=== PATIENT | female | born 2005 | race Two or more races ===

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

== ENCOUNTER 2023-05-02 21:34 | Emergency (ER) | payer BC, SELFPAY ==
[2023-05-02 22:21] VITALS: BP 136/76; PULSE 114; RESP 18; TEMP 36.4; O2SAT 100; BMI 20.8
[2023-05-02 22:50] LABS: Strep A DNA Probe* NOT DETECTED (Not Detectd)
[2023-05-02 23:01] LABS: PCR FLU A Negative PCR FLU A (Negative); PCR FLU B Negative PCR FLU B (Negative); PCR RSV Negative PCR RSV (Negative)
[2023-05-02 23:37] LABS: SARS PCR* Negative SARS-CoV-2 (Negative)
--- NOTE | 2023-05-03 | ED_ITS ---
HPI - General Adult General Chief complaint: Sore Throat Stated complaint: Strep Throat Time Seen by Provider: 05/02/23 23:23 History of Present Illness HPI narrative: Patient is a 17-year-old woman who comes in with right-sided ear pain and pharyngitis. She has been sick for last 2-3 days. She has low-grade fevers general malaise body aches but has been eating and drinking normally. She has no cough no sputum production no nausea or vomiting. Rapid strep is negative. She has had no sick contacts. Related Data Home Medications Medication Instructions Recorded Confirmed Pepcid 05/15/22 Previous Rx's Medication Instructions Recorded metronidazole 500 mg tablet 500 mg PO BID 7 days #14 tabs 09/29/22 Allergies Allergy/AdvReac Type Severity Reaction Status Date / Time medrol pack Allergy Intermediate Uncoded 05/02/23 22:21 Review of Systems Status of ROS: Reports: 10 or more systems reviewed and unremarkable except as noted in History and below [facility] Medical History No significant past medical history Surgical History No significant past surgical history Social History Smoking Status: Never smoker Do you use any of these nicotine containing products: None Second hand tobacco smoke exposure: No How often do you have a drink containing alcohol: never How often do you have six or more drinks on one occasion: Never AUDIT-C Alcohol total score: 0 Non-prescribed substance use: denies use service: No Exam Narrative: Exam Narrative: EXAM GENERAL: Patient appears comfortable and well. EYES: No scleral icterus. ENT: Right tympanic membrane shows dullness and erythema left tympanic membrane is normal. Pharynx is normal. THYROID: no thyroid nodules or thyromegaly. LYMPH: No supraclavicular or cervical lymphadenopathy. SKIN: Visible skin seen during exam normal or with benign process only. EXT: No dependent lower extremity pedal edema. HEART: Regular rate and rhythm with no murmurs, rubs, or gallops. LUNGS: Clear to auscultation bilaterally with no crackles or wheezes. ABD: Soft, non tender, non distended. PSYCH: Good eye contact, speech is not pressured. Const: Vital Signs, click to edit/add: Vital Signs - 24 hr 05/02/23 22:21 Temperature 97.5 F L Pulse Rate [Right Pulse Oximeter] 114 H Respiratory Rate 18 Blood Pressure [Ri ght Upper Arm] 136/76 Pulse Oximetry 100 Oxygen Delivery Me thod Room Air Course Course ED Course: Patient seen and examined. Vital Signs Vital signs: Initial Vital Signs Temperature 97.5 F L 05/02/23 22:21 Temperature Source Temporal Artery Scan 05/02/23 22:21 Pulse Rate 114 H 05/02/23 22:21 Respiratory Rate 18 05/02/23 22:21 Blood Pressure 136/76 05/02/23 22:21 Blood Pressure Mean 96 05/02/23 22:21 Blood Pressure Position Sitting 05/02/23 22:21 Pulse Oximetry 100 05/02/23 22:21 Oxygen Delivery Method Room Air 05/02/23 22:21 Vital Signs Temperature 97.5 F L 05/02/23 22:21 Pulse Rate 114 H 05/02/23 22:21 Respiratory Rate 18 05/02/23 22:21 Blood Pressure 136/76 05/02/23 22:21 Pulse Oximetry 100 05/02/23 22:21 Oxygen Delivery Method Room Air 05/02/23 22:21 Temperature 97.5 F L 05/02/23 22:21 Pulse Rate 114 H 05/02/23 22:21 Respiratory Rate 18 05/02/23 22:21 Blood Pressure 136/76 05/02/23 22:21 Pulse Oximetry 100 05/02/23 22:21 Oxygen Delivery Method Room Air 05/02/23 22:21 Medical Decision Making MDM Narrative Medical decision making narrative: Patient is a healthy 17-year-old college student who presents with right-sided ear pain and pharyngitis. Rapid strep is negative but she does have evidence of otitis media on exam. Patient will be treated with amoxicillin Tylenol Motrin rest and fluids with primary care follow-up. Differential Diagnosis Differential Diagnosis: Strep throat otitis media viral syndrome otitis externa sinusitis Lab Data Labs: Lab Results 05/02/23 Range/Units 22:14 SARS-CoV-2 (PCR) Negative SARS-CoV-2 (Negative) Influenza Type A (PCR) Negative PCR FLU A (Negative) Influenza Type B (PCR) Negative PCR FLU B (Negative) RSV (PCR) Negative PCR RSV (Negative) Group A Strep DNA NOT DETECTED (Not Detectd) Discharge Plan Discharge Clinical Impression: Otitis media Condition: Stable Instructions: Ear Infection (ED) Additional Instructions: Amoxicillin Tylenol Motrin Rest Fluids Activity Level: No Restrictions Discharge Diet: Regular Prescriptions: No Action Pepcid metronidazole 500 mg tablet 500 mg PO BID 7 Days Qty: 14 0RF Follow Up/Referrals: Provider,Not a Local [Primary Care Provider] - Stand Alone Forms: My[facility] Info Instructions
== END 2023-05-03 00:20 | disposition home or self-care (01) ==
LOC: ED 05-03 00:08
PROVIDERS: Emergency Provider Internal Medicine
DX: Z20.822 Contact with and (suspected) exposure to COVID-19 (principal); H66.91 Otitis media, unspecified, right ear; J02.9 Acute pharyngitis, unspecified
CPT/HCPCS: 87631; 87651; 99282; 99283

== ENCOUNTER 2023-05-20 09:07 | Outpatient (CLI) | payer BC, SELFPAY | END 2023-05-20 09:08 | disposition home or self-care (01) | LOC: AMB 05-25 09:22 | PROVIDERS: Visit Provider Student in an Organized Health Care Education/Training Program | DX: S09.90XA Unspecified injury of head, initial encounter (principal); W06.XXXA Fall from bed, initial encounter; Z91.81 History of falling; Y92.163 Bedroom in school dormitory as the place of occurrence of the external cause | CPT/HCPCS: A0425; A0427 ==

== ENCOUNTER 2023-05-20 09:35 | Emergency (ER) | payer BC, SELFPAY ==
--- NOTE | 2023-05-20 09:37 | CRLHL7_ITS ---
For Patients: As a result of the Century Cures Act, medical imaging exams and procedure reports are released immediately into your electronic medical record. You may view this report before your referring provider. If you have questions, please contact your health care provider. Indication: Injury Technique: CT examination of the facial bones was performed. Imaging was acquired from above the frontal sinuses through the mid cervical area. Contrast was not administered. Sagittal and coronal reformatted imaging was performed. Please note that all CT scans at this facility use dose modulation, iterative reconstruction, and/or weight-based dosing when appropriate to reduce radiation dose to as low as reasonably achievable. Comparison: None prior to today Findings: Soft tissue swelling identified involving the preseptal orbital area and anterior to the nose on the right. A laceration is noted in the region the right preseptal orbital area and medial aspect of the nose. Gas is seen within soft tissues from laceration but there is no foreign body. The globes are intact. There is no visible involvement directive the globes or the retro supple space. I see no fracture of the facial bones or orbits. Significant sinus inflammatory disease is noted involving mostly the right maxillary sinus and the ethmoid air cells especially on the right. There is rightward nasal septal deviation. Impression: 1. Findings of a laceration but no radiopaque foreign body. 2. No direct findings of injury to the right globe. 3. No visible fracture or destructive process involving the orbits or the facial bones. 4. Significant appearing acute on chronic sinus mucosal inflammatory disease. Please note that all CT scans at this facility use dose modulation, iterative reconstruction, and/or weight-based dosing when appropriate to reduce radiation dose to as low as reasonably achievable. Dictated by Rashid Foster MD @ 05/20/2023 11:15:02 AM (Electronically Signed)
--- NOTE | 2023-05-20 09:37 | CRLHL7_ITS ---
For Patients: As a result of the Century Cures Act, medical imaging exams and procedure reports are released immediately into your electronic medical record. You may view this report before your referring provider. If you have questions, please contact your health care provider. INDICATION: Injury COMPARISON: None TECHNIQUE: CT examination of the head was performed as axial sections without intravenous contrast. Images were obtained from the vertex of the skull through the skull base. Please note that all CT scans at this facility use dose modulation, iterative reconstruction, and/or weight-based dosing when appropriate to reduce radiation dose to as low as reasonably achievable. FINDINGS: The brain shows no sign of mass lesion, mass effect, hemorrhage, or edema. The ventricles and sulci are normal in appearance for the patient`s age. The visualized portions of the orbits are normal in appearance. The osseous structures are normal in their appearance with no sign of abnormality in the skull base or calvarium. A laceration is noted near the right brow. There is fluid within multiple sinuses which is probably inflammatory. Please review the separate facial bone report IMPRESSION: 1. There is no acute intracranial posttraumatic finding. 2. Laceration noted near the right eye. Fluid within the sinuses probably inflammatory. Please review the separate facial bone report under separate cover. Please note that all CT scans at this facility use dose modulation, iterative reconstruction, and/or weight-based dosing when appropriate to reduce radiation dose to as low as reasonably achievable. Dictated by Rashid Foster MD @ 05/20/2023 11:09:47 AM (Electronically Signed)
[2023-05-20 09:38] VITALS: BP 121/73; PULSE 87; RESP 20; TEMP 35.5; O2SAT 99; BMI 24.8
[2023-05-20] MEDS: MORPHINE 4 MG/ML INJ IVP (09:51)
--- NOTE | 2023-05-20 09:55 | ED_ITS ---
HPI - General Adult General Date Seen: 05/20/23 Chief complaint: Head Injury/Pain Stated complaint: fell off top bunk Time Seen by Provider: 05/20/23 09:37 Source: patient Mode of arrival: EMS Limitations: no limitations History of Present Illness HPI narrative: Patient is an 16-year-old female history of migraines presenting to the emergency department after head injury. He was in her bed she rolled off the bed hitting her head on the side table. She was on a top bunk. She had a large laceration above her right eye. EMS was called. She was stable throughout transport for them. She has a little weak and inserting all questions appropriately. She does states she has a headache right now but denies lightheadedness, dizziness, vision changes, weakness, numbness. No other maximus rns at this time. Related Data Home Medications Medication Instructions Recorded Confirmed Pepcid 05/15/22 Previous Rx's Medication Instructions Recorded metronidazole 500 mg tablet 500 mg PO BID 7 days #14 tabs 09/29/22 Allergies Allergy/AdvReac Type Severity Reaction Status Date / Time medrol pack Allergy Intermediate Uncoded 05/02/23 22:21 Review of Systems Status of ROS: Reports: 10 or more systems reviewed and unremarkable except as noted in History and below [facility] Medical History No significant past medical history Surgical History No significant past surgical history Social History Smoking Status: Never smoker Do you use any of these nicotine containing products: None Second hand tobacco smoke exposure: No How often do you have a drink containing alcohol: never How often do you have six or more drinks on one occasion: Never AUDIT-C Alcohol total score: 0 Non-prescribed substance use: denies use service: No Exam Narrative: Exam Narrative: Const: Well-nourished, Well-developed, in mild distress Eyes: PERRL, no conjunctival injection, and symmetrical lids HENT: 2.5 cm laceration above the right eye, Moist mucous membranes. Neck: Symmetric, trachea midline, No thyromegaly. CVS: RRR, No murmurs or gallops. Peripheral pulses 2+ and equal in all extremities RESP: Unlabored respiratory effort. Clear to auscultation bilaterally. GI: Nontender/Nondistended, No rebound or guarding. MSK:Extremities w/o deformity, Normal Active ROM. No midline spinal tenderness or step-offs Skin: Warm, Dry. No rashes or lesions. Neuro: Normal Muscle tone, No focal neurological deficits. GCS 15 Psych: Awake, Alert, & Oriented x3. Appropriate mood and affect. Const: Vital Signs, click to edit/add: Vital Signs - 24 hr 05/20/23 09:38 Temperature 95.9 F L Pulse Rate [Pulse Oximeter] 87 Respiratory Rate 20 Blood Pressure [Le ft Upper Arm] 121/73 Pulse Oximetry 99 Oxygen Delivery Me thod Room Air Course Course ED Course: Const: Well-nourished, Well-developed, in mild distress Eyes: PERRL, no conjunctival injection, and symmetrical lids HENT: 2.5 cm laceration above right eye. Moist mucous membranes. Neck: Symmetric, trachea midline, No thyromegaly. CVS: RRR, No murmurs or gallops. Peripheral pulses 2+ and equal in all extrem ities RESP: Unlabored respiratory effort. Clear to auscultation bilaterally. GI: Nontender/Nondistended, No rebound or guarding. MSK:Extremities w/o deformity, Normal Active ROM Skin: Warm, Dry. 2.5 cm laceration above right eye Neuro: Normal Muscle tone, No focal neurological deficits. Psych: Awake, Alert, & Oriented x3. Appropriate mood and affect. Vital Signs Vital signs: Initial Vital Signs Temperature 95.9 F L 05/20/23 09:38 Temperature Source Temporal Artery Scan 05/20/23 09:38 Pulse Rate 87 05/20/23 09:38 Pulse Rhythm Regular 05/20/23 09:38 Respiratory Rate 20 05/20/23 09:38 Blood Pressure 121/73 05/20/23 09:38 Blood Pressure Mean 89 05/20/23 09:38 Blood Pressure Position Supine 05/20/23 09:38 Pulse Oximetry 99 05/20/23 09:38 Oxygen Delivery Method Room Air 05/20/23 09:38 Vital Signs Temperature 95.9 F L 05/20/23 09:38 Pulse Rate 87 05/20/23 09:38 Respiratory Rate 20 05/20/23 09:38 Blood Pressure 121/73 05/20/23 09:38 Pulse Oximetry 99 05/20/23 09:38 Oxygen Delivery Method Room Air 05/20/23 09:38 Temperature 95.9 F L 05/20/23 09:38 Pulse Rate 87 05/20/23 09:38 Respiratory Rate 20 05/20/23 09:38 Blood Pressure 121/73 05/20/23 09:38 Pulse Oximetry 99 05/20/23 09:38 Oxygen Delivery Method Room Air 05/20/23 09:38 Medical Decision Making MDM Narrative Medical decision making narrative: Patient is an 16-year-old female presents to emergency department after rolling off the bed hitting her head the nightstand. Of note she was on top bunk of her dorm. She does states she has a headache right after the fall. Patient was given morphine for pain. Does admit to having chronic migraine for the past 16 days that she states starts in her right medial maxillary region. Due to the mechanism of injury we will order a head and cervical spine CT. Those results returned showing no acute fractures or intracranial injury. Of note she does have significant right maxillary sinus inflammation. This is likely the cause of her migraines. We will give her information for ENT follow-up. Laceration was fixed. See procedure note. Does not appear to affect deep muscle since she has full range of motion of her eyes without pain. I did put 2 deep sutures for better approximate. She is otherwise doing well can be discharged home. Lab Data Labs: Lab Results 05/20/23 Range/Units 09:47 HCG, Qual Negative (Negative) Discharge Plan Discharge Clinical Impression: Closed head injury Qualifiers: Encounter type: initial encounter Qualified Code(s): S09.90XA - Unspecified injury of head, initial encounter Sinusitis Qualifiers: Sinusitis location: maxillary Chronicity: unspecified Qualified Code(s): J32.0 - Chronic maxillary sinusitis Facial laceration Qualifiers: Encounter type: initial encounter Qualified Code(s): S01.81XA - Laceration without foreign body of other part of head, initial encounter Patient Disposition: Home, Self-Care Condition: Improved Instructions: Laceration (ED), Sinusitis (ED), Head Injury (DC) Additional Instructions: Follow-up with your primary care provider/urgent care/emergency department in the next 7 days to have the 8 sutures removed. For next 6 months, once sutures are removed, whenever you goes outside put a tab of sunscreen over the laceration site to improve scar appearance. Topical antibiotics are not necessary at this time. Patient can shower but do not submerge the laceration until sutures are removed. Hold off on any exam until next week. School note was provided. Take Tylenol and ibuprofen for pain. We gave you information for ENT follow-up for his sinusitis. Prescriptions: No Action Pepcid metronidazole 500 mg tablet 500 mg PO BID 7 Days Qty: 14 0RF Follow Up/Referrals: Provider,Not a Local [Primary Care Provider] - Stand Alone [facility]: [facility] Instructions Procedures Laceration Right eyebrow: Name of person performing procedure: Tucker Alejandro Site: face (Eyebrow) Side (If applicable): right Size (cm): 2.5 Description: linear and clean Depth: simple, single layer Local Anesthetic: lidocaine 1% Amount of anesthesia used (mL): 5 Pre-repair: wound explored, irrigated extensively and deep structures intact Skin layer closed with: nylon Size (cm): 5-0 Number of sutures: 8 Technique: simple, interrupted Subcutaneous layer closed with: Vicryl Size: 5-0 Number of sutures: 2 Technique: simple, interrupted Conclusion: patient tolerated procedure
[2023-05-20 10:27] LABS: HCG Qualitative Serum* Negative (Negative)
== END 2023-05-20 12:15 | disposition home or self-care (01) ==
PROVIDERS: Emergency Provider Student in an Organized Health Care Education/Training Program
DX: S01.111A Laceration without foreign body of right eyelid and periocular area, initial encounter (principal); J32.0 Chronic maxillary sinusitis; W06.XXXA Fall from bed, initial encounter
CPT/HCPCS: 12011; 36415; 70450; 70486; 84703; 96374; 99283; 99284; J2270

== ENCOUNTER 2023-05-22 21:46 | Emergency (ER) | payer BC, SELFPAY ==
[2023-05-22 21:56] VITALS: BP 103/75; PULSE 105; RESP 22; TEMP 36.5; O2SAT 98; BMI 24.8
--- NOTE | 2023-05-22 22:14 | ED_ITS ---
HPI - General Adult General Date Seen: 05/22/23 Chief complaint: Unspecified Complaint, Adult Stated complaint: shaking and light headed Time Seen by Provider: 05/22/23 21:56 History of Present Illness HPI narrative: This is a 17-year-old female with a history of chronic migraine headaches, anxiety/depression, and recent head injury who presents to the ER today with her friend/roommate from [facility] for evaluation of anxiety, panic attack, and headache. She reports that she has had a migraine headache currently ongoing for about 16 days. She has a long history of migraine headaches. In the past she had been on gabapentin for migraines and anxiety but stopped taking it several weeks ago because it makes her drowsy and she can not function in her classes. She had a fall where she rolled out of her top bunk 2 days ago. She did have a laceration to her right eyebrow which was repaired here in the ER. During that ER visit she had CT scan of her head and facial bones which were fortunately negative for serious injuries. Of note, the CT scan of her facial bones did show evidence for sinusitis. She was prescribed oxycodone that she can use for her pain. She took 2 tablets yesterday but feels like her too strong. She took 1 about 330 today and felt like it was too strong. At about 430 she began to feel weird. She felt anxious. She was worried. She felt like her heart was racing. Since then she has had off and on episodes of fluttering in her heart, anxiety, unusual shaking, and trouble with her speech. She just tried to go to sleep several times but could not sleep so her friend brought her here to the ER. Her racing heart and shakiness are similar to previous panic attacks. In the past they been sometimes triggered by academic problems or family problems. No clear trigger tonight other than she has not been able to do her class work because of her concussion and headaches. No other symptoms. No fevers. No blurry vision. No shortness of breath. No neck pain. The patient's mother, Noemi Cevallos called on the phone. She did provide additional history that the patient does have history of anxiety but never attacks like this with the stuttering speech and the palpitations. Mother is concerned that the oxycodone may be too strong Related Data Home Medications Medication Instructions Recorded Confirmed Pepcid 05/15/22 ondansetron HCl 8 mg tablet 8 mg PO Q8H PRN 05/22/23 05/22/23 Previous Rx's Medication Instructions Recorded metronidazole 500 mg tablet 500 mg PO BID 7 days #14 tabs 09/29/22 oxycodone 5 mg capsule 5 mg PO Q4H PRN pain #12 caps 05/20/23 doxycycline monohydrate 100 mg 100 mg PO BID 10 days #20 caps 05/22/23 capsule Allergies Allergy/AdvReac Type Severity Reaction Status Date / Time Penicillins Allergy Verified 05/22/23 21:59 medrol pack Allergy Intermediate Uncoded 05/02/23 22:21 PFSH PFS Medical History No significant past medical history Surgical History No significant past surgical history Social History Smoking Status: Never smoker Do you use any of these nicotine containing products: None Second hand tobacco smoke exposure: No How often do you have a drink containing alcohol: never How often do you have six or more drinks on one occasion: Never AUDIT-C Alcohol total score: 0 Non-prescribed substance use: denies use service: No Exam Narrative: Exam Narrative: Constitutional: Appears well-developed and well-nourished. Alert. She is initially displaying some irregular shivering/shaking of her arms and legs. Not consistent with seizure. She is hyperventilating and sniffling. Speech is initially halting. At times she will close her eyes and not answer questions for several seconds. At time she is otherwise fairly conversant. HENT: Head: Dressing on her right eyebrow covering her laceration. Soft tissue swelling around it consistent with contusion. No signs of erythema or infection. Nose: Nose normal. Mouth/Throat: Oral mucosa is clear and moist. no trismus. Pharynx normal. Tonsils symmetric. No tonsillar enlargement, erythema, or exudate. Eyes: Conjunctivae normal. EOM normal. Pupils equal, round, and reactive to light. No scleral icterus. Neck: Normal range of motion. Neck supple. No tracheal deviation present. Cardiovascular: Normal rate, regular rhythm. No gallop. No friction rub. No murmur heard. Symmetric radial artery pulses Pulmonary/Chest: Effort normal. No stridor. No respiratory distress. No wheezes. No rales. No rhonchi . No tenderness. Abdominal: Soft. No distension. No mass. No tenderness. No rebound. No guarding. Musculoskeletal: RUE: Normal range of motion. No tenderness. No deformity LUE: Normal range of motion. No tenderness. No deformity RLE: Normal range of motion. No edema. No tenderness. No deformity LLE: Normal range of motion. No edema. No tenderness. No deformity Neurological: Alert and oriented to person, place, and time. Normal strength. CN II-VII intact. No sensory deficit. GCS eye subscore is 4. GCS verbal subscore is 5. GCS motor subscore is 6. Normal coordination Skin: Skin is warm and dry. No rash noted. No pallor. Normal capillary refill. Psychiatric: Normal mood. Normal affect. Const: Vital Signs, click to edit/add: Vital Signs - 24 hr 05/22/23 21:56 05/22/23 22:46 05/22/23 22:50 Temperature 97.7 F Pulse Rate [Pulse Oximeter] 105 H 80 Respiratory Rate 22 20 Blood Pressure [Ri ght Upper Arm] 103/75 108/76 Pulse Oximetry 98 99 99 Oxygen Delivery Me thod Room Air Room Air 05/22/23 23:42 05/22/23 23:44 Temperature 97.7 F 97.7 F Pulse Rate [Pulse Oximeter] 80 Respiratory Rate 20 Blood Pressure [Ri ght Upper Arm] 108/76 Pulse Oximetry Oxygen Delivery Me thod Course Course ED Course: Recheck-discussed with mother, Noemi, by phone Reevaluation(s) Reevaluation #1: Recheck-about 20-25 minutes after Toradol and droperidol. Patient says she is starting to feel better. Initially her responses strike knee is a bit sarcastic and manipulative. It seems like she just wants to get home from the ER. When I sat down with her and her friends it turns out she is feeling little bit better but still having some headache. Reevaluation #2: Recheck-phone conversation had with the patient's mother by speaker phone and the patient and her roommates here at the bedside. We had a long conversation about headache, possible sinusitis, possible concussion, also possible chronic migraines. In terms of the headache they would like to try a course of antibiotics to treat for possible sinusitis. She has had a rash recently from amoxicillin so will try doxycycline instead. Discussed with them that sinusitis is often viral or due to allergies and so antibiotics are typically not indicated. However if the ear is a sinus infection that is contributing to severe headaches it would be reasonable to treat her with a course of antibiotics because of symptoms severity. Also discussed that there is a potential that antibiotics would add no benefit. Overall we feel that the potential for benefit would outweigh the potential risk in this case. She is not febrile. At this point I do not think there is any sign of any intracranial complication of sinusitis such as meningitis or epidural abscess. Also discussed the potential for intracranial bleeding or swelling. She did have a normal noncontrast head CT on the day of her fall. She is not anticoagulated her other otherwise coagulopathic so risk of delayed bleeding or any significant structural drainage to her brain would be low. My recommendation would be to hold off on repeat CT imaging due to risk of radiation and ligament seat. Mother wholeheartedly in agreement. Patient verbalizes her understanding but again seems a bit sarcastic. I think more than anything else she just wants to leave the ER. It sounds like she and her mother are working on arranging a long-term neurologist to help manage her chronic headache syndrome. It has been difficult for them since she lives in [place] during the summer and here in [place] during the college term. Also discussed the patient's anxiety. There seems to be a strong component of anxiety/patient feeling overwhelmed. Would recommend that she discontinue oxycodone because it is causing side effects and may have helped precipitate panic attack this evening.. It sounds like she has been on anxiety medicines in the past which have made her worse, these would include gabapentin which cause drowsiness and sertraline which may cause mood swings and irritability. She does not really have a regular doctor well here in [place] to help manage any meds for her. Sounds like she and her mother are working on that. I agreed to give her a short supply of 10 Ativan tablets (0.5 mg/tablet) that she can use p.r.n. for panic attacks for the next couple of days until she can follow-up with student health and /or primary care. She will discontinue oxycodone. At the time of this conversation, the patient's most pressing concern is that she has a saline lock in her left antecubital fossa. She does not like the idea of having an IV in and wants to get it out, more than anything else. From a certain perspective, it is encouraging that her headache and neurologic symptoms are no longer her primary concern. However this preoccupation with her IV probably reflects significant underlying anxiety disorder. I did have the nurses expeditiously remove her IV. At that point point the patient wanted to go home with her friend/roommate. Her friend and her roommate are supportive of this and feel like she is safe to come home with them. Her mother was very collaborative and interactive over the phone. Her mother is supportive of discharge at this time as well. I expressed my concern that it sounds like the patient has been having struggles going on for the past few week with fairly significant ongoing headache, that had been getting pretty debilitating even before her head injury. She has not completed any of her course work in at least the past 5 days and as a result she is concerned that she may be failing her classes. Now with the superimposed headache and superimposed anxiety, she will be having even more difficulty completing her course work. I was trying to burp broached the topic that she may need more intensive treatment for him mental health/anxiety standpoint. However the patient is resistant to any further treatment or discussion in the ER and just wants to discharge home. At this point she is not posing an active threat to herself or or others. Although she is struggling with her academic course work, she is not so disabled from a mental standpoint that she has unable to meet her ADLs. I do not think she is holdable at this time. Her mother and her friend and her roommate are supportive of discharge. Therefore, I will discharge her with her roommates. I did invite the patient and her family to return immediately if any worsening symptoms whether they be from a headache standpoint or mental health standpoint, or if concerns develop.. Vital Signs Vital signs: Initial Vital Signs Temperature 97.7 F 05/22/23 21:56 Temperature Source Temporal Artery Scan 05/22/23 21:56 Pulse Rate 105 H 05/22/23 21:56 Pulse Rhythm Regular 05/22/23 21:56 Respiratory Rate 22 05/22/23 21:56 Blood Pressure 103/75 05/22/23 21:56 Blood Pressure Mean 84 05/22/23 21:56 Pulse Oximetry 98 05/22/23 21:56 Oxygen Delivery Method Room Air 05/22/23 21:56 Vital Signs Temperature 97.7 F 05/22/23 21:56 Pulse Rate 105 H 05/22/23 21:56 Respiratory Rate 22 05/22/23 21:56 Blood Pressure 103/75 05/22/23 21:56 Pulse Oximetry 98 05/22/23 21:56 Oxygen Delivery Method Room Air 05/22/23 21:56 Temperature 97.7 F 05/22/23 23:44 Pulse Rate 80 05/22/23 23:44 Respiratory Rate 20 05/22/23 23:44 Blood Pressure 108/76 05/22/23 23:44 Pulse Oximetry 99 05/22/23 22:50 Oxygen Delivery Method Room Air 05/22/23 22:46 Discharge Plan Discharge Clinical Impression: Anxiety, Closed head injury, Sinusitis Patient Disposition: Home, Self-Care Condition: Stable Instructions: Sinusitis (ED), Head Injury (DC), Anxiety (ED) Additional Instructions: Please follow-up with your doctor or student health service tomorrow for recheck. Please work with her family to arrange a neurologist to help manage her headaches and a doctor or psychiatrist to help manage your anxiety. If you have any problems such as worsening headache, vomiting, confusion, uncontrolled anxiety, thoughts of self-harm or suicidal thoughts, return to the ER right away. Prescriptions: New doxycycline monohydrate 100 mg capsule 100 mg PO BID 10 Days Qty: 20 0RF No Action Pepcid oxycodone 5 mg capsule 5 mg PO Q4H PRN (Reason: pain) Qty: 12 0RF ondansetron HCl 8 mg tablet 8 mg PO Q8H PRN metronidazole 500 mg tablet 500 mg PO BID 7 Days Qty: 14 0RF Follow Up/Referrals: Provider,Not a Local [Primary Care Provider] - Stand Alone Forms: MyHealth Info Instructions
[2023-05-22] MEDS: KETOROLAC 15 MG/ML inj IVP (22:32)
[2023-05-22] MEDS: droperidoL 2.5 MG/ML inj 1.25 MG IV (22:40)
[2023-05-22 22:46] VITALS: BP 108/76; PULSE 80; RESP 20; O2SAT 99
[2023-05-22 22:50] VITALS: O2SAT 99
[2023-05-22 23:42] VITALS: TEMP 36.5
[2023-05-22 23:44] VITALS: BP 108/76; PULSE 80; RESP 20; TEMP 36.5
== END 2023-05-22 23:45 | disposition home or self-care (01) ==
PROVIDERS: Emergency Provider Emergency Medicine
DX: R51.9 Headache, unspecified (principal); J32.9 Chronic sinusitis, unspecified; S09.90XA Unspecified injury of head, initial encounter
CPT/HCPCS: 94761; 96374; 96375; 99283; 99284; J1200; J1790; J1885

== ENCOUNTER 2023-08-25 13:39 | Outpatient (CLI) | payer BC, SELFPAY ==
--- OUTSIDE RECORDS SUMMARY | 2023-08-21 07:50 | XMS_ITS | Summary of Care ---
Author Name Unknown Organization Carlee Laura a Address [address] [facility] [address] [place] [address] Phone Care Team Providers Care Paving Contractor Name Role Phone No, Physician Primary Care Provider Unavailabl e Reason for Visit * Reason Comments Establish Care Encounter Details Date Type Department Care Team Description 04/10/2023 1:00 PM PDT Office Visit [facility] Internal Medicine [place] [address] [facility] [address] [place] [phone] Ryan Ovalles MD [address] [facility] [address] [place], [place] [id number] Epigastric pain (Primary Dx); Unintentional weight loss; Nausea and vomiting, unspecified vomiting type; Syncope, unspecified syncope type Allergies No known active allergiesdocumented as of this encounter (statuses as of 04/21/2023) Medications Medication Sig Dispensed Refills Start Date End Date Status sucralfate (CARAFATE) 1 g tabletIndications:Chr onic gastric ulcer without hemorrhage and without perforation Take 1 tablet by mouth 2 times daily. 60 tablet 0 07/19/2022 Active omeprazole (PRILOSEC) 20 mg capsuleIndications:Ch ronic gastric ulcer without hemorrhage and without perforation Take 1 capsule by mouth every morning (before breakfast). 30 capsule 0 07/19/2022 Active ondansetron (ZOFRAN) 8 MG tabletIndications:Anibal sea and vomiting, unspecified vomiting type Take 1 tablet by mouth every 8 hours as needed for Nausea or Vomiting. 30 tablet 0 08/01/2022 Active omeprazole (PRILOSEC) 20 mg capsuleIndications:Ep igastric pain,Acute superficial gastritis without hemorrhage Take 1 tablet every 12 hours daily 30 minutes before meals. 30 capsule 0 08/01/2022 Active benzonatate (TESSALON) 100 mg capsuleIndications:Ac bernard cough Take 1 capsule by mouth 3 times daily as needed for Cough. 90 capsule 0 08/18/2022 Active sucralfate (CARAFATE) 1 g tabletIndications:Enc ounter for medication refill Take 1 tablet by mouth 2 times daily. 60 tablet 0 08/18/2022 Active amitriptyline (ELAVIL) 10 mg tablet Take 1 tablet by mouth nightly. 30 tablet 3 04/10/2023 Active documented as of this encounter (statuses as of 04/21/2023) Active Problems Problem Noted Date Diagnosed Date Nausea and vomiting, unspecified vomiting type 1 10/09/2021 Overview: Added automatically from request for surgery [id number] Epigastric pain 08/08/2022 Overview: Added automatically from request for surgery [id number] Unintentional weight loss 08/08/2022 Overview: Added automatically from request for surgery [id number] documented as of this encounter (statuses as of 04/21/2023) Immunizations Name Administration Dates Next Due DTAP (INFANRIX) 5 DOSE 04/21/2009,2005,07/31/2004,05/15,02/27/2004 HEP A, 2 DOSE (PED) 04/21/2009,04/01/2006 HEP A, UNSPECIFIED FORMULATION 04/21/2009 HEP B (PED,ADOLESCENT) 3 DOSE 04/01/2006, 004,2003 HEP B, 3 DOSE (ADULT) 02/27/2004,2003 HIB (PRP-OMP), 3 DOSE (PED) 05/15/2004, 4 HIB (PRP-T), 4 DOSE (PED) 04/01/2006,05/15/2004, 02/27/2004 HPV (GARDASIL) 3 DOSE 01/20/2015 HPV 9-VALENT RECOMB VACCINE IM 02/16/2019 MENINGOCOCCAL CONJUGATE,SUAREZ CTRA (PED/ADOL/ADULT) 02/25/2020 MENINGOCOCCAL CONJUGATE,MENV EO (PED/ADOL/ADULT) 01/20/2015 MMR (M-M-R II) 2 DOSE 04/01/2006,04/29/2005 PNEUMOCOCCAL CONJUGATE 13-VA LENT (PCV13) 04/01/2006,07/31/2004,05/15/2004,02/26 PNEUMOCOCCAL PCV7 (PED) 07/31/2004,05/15/2004, POLIO (IPV), 4 DOSE 04/21/2009, 6,05/15/2004,02/26 TDAP, (ADOL/ADULT) 01/20/2015 VARICELLA (VARIVAX) 2 DOSE 04/21/2009,04/29/2005 documented as of this encounter Social History Tobacco Use Types Packs/Day Years Used Date Smoking Tobacco: Never Smokeless Tobacco: Never Tobacco Cessation:Counseling Given: Not Answered Sex and Gender Information Value Date Recorded Sex Assigned at Not on file Gender Identity Not on file Sexual Orientation Not on file documented as of this encounter Last Filed Vital Signs Vital Sign Reading Time Taken Comments Blood Pressure 111/73 04/10/2023 2:03 PM PDT Pulse 66 04/10/2023 2:03 PM PDT Temperature 36.2 ??C (97.2 ??F) 04/10/2023 2:03 PM PD T Respiratory Rate - - Oxygen Saturation 100% 04/10/2023 2:03 PM PDT Inhaled Oxygen Concentration - - Weight 67.6 kg (149 lb) 04/10/2023 2:03 PM PDT Height - - Body Mass Index - - documented in this encounter Progress Notes * [employer] Cashier - 04/10/2023 1:00 PM PDT Quality Measures: No [place] Measures to Address * Ryan Ovalles MD - 04/10/2023 1:00 PM PDT Subjective Patient ID: Abi Cevallos is a 17 y.o. female. Review of Systems All other systems reviewed and are negative. Objective BP 111/73 Pulse 66 Temp 36.2 ??C (97.2 ??F) (Tympanic) Wt 67.6 kg (149 lb) SpO2 100% The patient is a 17-year-old female who is here complaining of fatigue. She has been having fatiguefor several months. She is recently started college in [place] and while there had a lot of abdominal complaints. She had an EGD that was negative for ulcers. She is also suffering from chronic migraine headaches. She has had these for some time. They're very hard to control. She has been told that she has irritable bowel syndrome. She did become a vegetarian for short. Time. She says she is now not eating that way. MEDICATIONS: None. PHYSICAL EXAM: VITALS SIGNS: Blood pressure is 111/73. Pulse 66. Respirations 18. HEENT: Unremarkable. NECK: Supple. LUNGS: Clear. HEART: Regular rate and rhythm. ABDOMEN: Benign. EXTREMITIES: Without edema. IMPRESSION/PLAN: 1. Fatigue. Possibly related to anemia or her chronic abdominal complaints. We will do a CBC, CMP, and TSH. 2. Chronic migraine headaches. We will try her on Elavil 10 mg at bedtime. She should see a neurologist when she gets back to school. 3. Chronic abdominal pain. Possibly irritable bowel syndrome. We will follow. documented in this encounter Plan of Treatment Health Maintenance Due Date Last Done Comments Hepatitis C Screening 2003 Well Child Check 12/14/2006 Human Immunodeficiency Virus (HIV) Screening 12/14/2018 COVID-19 Vaccine (4 - Pfizer series) 10/17/2021 08/22/2021, 01/11/2021, 12/21/2020 Vaccine: Influenza (#1) 2023 06/11/2022 Vaccine: Dtap/Tdap/Td (7 - T d or Tdap) 01/20/2025 01/20/2015, 04/21/2009, 04/01/2006, Additional history exists Vaccine: HPV Completed 02/16/2019, 01/20/2015 documented as of this encounter Procedures Procedure Name Priority Date/Time Associated Diagnosis Comments FOLATE Routine 04/11/2023 7:48 AM PDT Nausea and vomiting, unspecified vomiting type IRON AND IRON BINDING CAPACITY Routine 04/11/2023 7:48 AM PDT Nausea and vomiting, unspecified vomiting type TSH, REFLEX FREE T4 Routine 04/11/2023 7 :48 AM PDT Unintentional weight loss CBC WITH DIFFERENTIAL Routine 04/11/2023 7:48 AM PDT Epigastric pain Unintentional weight loss Nausea and vomiting, unspecified vomiting type LIPASE Routine 04/11/2023 7:48 AM PDT Epigastric pain COMPREHENSIVE METABOLIC PANEL Routine 04/11/2023 7:48 AM PDT Syncope, unspecified syncope type documented in this encounter Results * TSH, Reflex Free T4 (04/11/2023 7:48 AM PDT) [facility] Signature TSH 3.83 mIU/L REFERENCE LAB [facility] Comment: ? Reference Range ? 1-19 Years 0.50-4.30 ? Ranges ? First trimester ?? 0.26-2.66 ? Second trimester ??0.55-2.73 ? Third trimester ?? 0.43-2.91 Blood 04/11/2023 7:48 AM PDT 04/11/2023 9:05 PM PDT Narrative Resulting Agency Comment Performing Organization Information: ?Site ID: [id number] ?Name: [facility] ?Address: [address] [place] [phone] ?Director: Enrique Hernandez MD Ryan Ovalles MD LAB BLOOD ORDERABLES [facility]ENCE [facility] [address] [place] [address] * Lipase (04/11/2023 7:48 AM PDT) Pathologist [facility] Lipase 41 7 - 60 U/L REFERENCE LAB [facility] Blood 04/11/2023 7:48 AM PDT 04/11/2023 9:05 PM PDT Narrative Resulting Agency Comment Performing Organization Information: ?Site ID: [email or web address] ?Name: [facility] ?Address: [address] [place] [phone] ?Director: Enrique Hernandez MD Ryan Ovalles MD LAB BLOOD ORDERABLES REFERENCE LAB [facility] REFERENCE LAB [facility] [address] [place] [phone] * Vitamin B-12 and Folate (04/11/2023 7:48 AM PDT) Pathologist [facility] Vitamin B12 438 200 - 1,100 pg/mL REFERENCE LAB [facility] Folate 14.0 ng/mL REFERENCE LAB [facility] Comment: ? Reference Range ? Low: ? <3.4 ? Borderline: ?3.4-5.4 ? Normal: ?>5.4 Blood 04/11/2023 7:48 AM PDT 04/11/2023 9:05 PM PDT Narrative Resulting Agency Comment Performing Organization Information: ?Site ID: [email or web address] ?Name: [facility] ?Address: [address] [place] [phone] ?Director: Enrique Hernandez MD Ryan Ovalles MD LAB BLOOD ORDERABLES Performing Organization Address [facility]/ZIP Co de Phone Number REFERENCE LAB [facility] [address] [phone] * (ABNORMAL) Iron and Iron Binding Capacity (04/11/2023 7:48 AM PDT) Iron 51 27 - 164 mcg/dL REFERENCE LAB [facility] Iron Binding Capacity 359 271 - 448 mcg/dL (calc) RE[facility] Iron Saturation 14(L) 15 - 45 % (calc) REFERENCE LAB [facility] Blood 04/11/2023 7:48 AM PDT 04/11/2023 9:05 PM PDT Narrative Resulting Agency Comment Performing Organization Information: ?Site ID: [email or web address] ?Name: [facility] ?Address: [address] [place] [phone] ?Director: Enrique Hernandez MD Ryan Ovalles MD LAB BLOOD ORDERABLES Performing Organization Address [facility] Co de Phone Number REFERENCE LAB [facility] RE[facility]ENCE LAB [address] [phone] * (ABNORMAL) Comprehensive Metabolic Panel (04/11/2023 7:48 AM PDT) Glucose 101(H) 65 - 99 mg/dL REFERENCE LAB [facility] Comment: ? Fasting reference interval For someone without known diabetes, a glucose value between 100 and 125 mg/dL is consistent with prediabetes and should be confirmed with a follow-up test. BUN 10 7 - 20 mg/dL REFERENCE LAB [facility] Creatinine 0.72 0.50 - 0.96 mg/dL [facility] eGFR 123 > OR = 60 mL/min/1. 73m2 [facility] BUN/Creatinine Ratio SEE NOTE: 6 - 22 (calc) [facility] Comment: ?? Not Reported: BUN and Creatinine are within ?? reference range. ? Sodium 140 135 - 146 mmol/L [facility] Potassium 3.9 3.8 - 5.1 mmol/L [facility] Chloride 105 98 - 110 mmol/L REFERENCE [facility] Carbon dioxide 28 20 - 32 mmol/L REFERENCE [facility] Calcium 9.1 8.9 - 10.4 mg/dL [facility] Protein, Total 6.7 6.3 - 8.2 g/dL [facility] Albumin 4.8 3.6 - 5.1 g/dL [facility] Globulin, Total 1.9(L) 2.0 - 3.8 g/dL (calc) [facility] A/G Ratio 2.5 1.0 - 2.5 (calc) REFERENCE [facility] BILIRUBIN, TOTAL 0.3 0.2 - 1.1 mg/dL REFERENCE LAB [facility] ALK PHOS 61 36 - 128 U/L REFERENCE LAB [facility] AST (SGOT) (REF) 12 12 - 32 U/L REFERENCE [facility] ALT (SGPT) (REF) 7 5 - 32 U/L RE[facility] Blood 04/11/2023 7:48 AM PDT 04/11/2023 9:05 PM PDT Narrative Resulting Agency Comment Performing Organization Information: ?Site ID: [id number] ?Name: [facility] ?Address: [address] [place] [phone] ?Director: Enrique Hernandez MD Ryan Ovalles MD LAB BLOOD ORDERABLES REFERENCE LAB [facility] RE[facility]ENCE [address] [phone] * (ABNORMAL) CBC with Differential (04/11/2023 7:48 AM PDT) WBC 6.6 3.8 - 10.8 Thousand/ uL [facility] Red Blood Cells 3.80 3.80 - 5.10 Million/u L REFERENCE LAB [facility] Hemoglobin 12.1 11.7 - 15.5 g/dL REFERENCE LAB [facility] Hct 34.8(L) 35.0 - 45.0 % REFERENCE LAB [facility] MCV 91.6 80.0 - 100.0 fL REFERENCE LAB [facility] MCH 31.8 27.0 - 33.0 pg REFERENCE [facility] MCHC 34.8 32.0 - 36.0 g/dL REFERENCE LAB [facility] RDW 12.4 11.0 - 15.0 % REFERENCE LAB [facility] Platelet Count 277 140 - 400 Thousand/ uL REFERENCE [facility] MPV 9.0 7.5 - 12.5 fL REFERENCE [facility] Absolute Neutrophils 3,201 1,500 - 7,800 cells/uL REFERENCE LAB [facility] Absolute Lymphocytes 2,653 850 - 3,900 cells/uL REFERENCE [facility] Absolute Monocytes 422 200 - 950 cells/uL REFERENCE [facility] Absolute Eosinophils 290 15 - 500 cells/uL REFERENCE [facility] Absolute Basophils 33 0 - 200 cells/uL REFERENCE [facility] % Neutrophils 48.5 % REFERE [facility] % Lymphocytes 40.2 % REFERE [facility] % Monocytes 6.4 % REFERENC E [facility] % Eosinophils 4.4 % REFERE [facility] % Basophils 0.5 % REFERENC E [facility] Blood 04/11/2023 7:48 AM PDT 04/11/2023 9:05 PM PDT Narrative Resulting Agency Comment Performing Organization Information: ?Site ID: [email or web address] ?Name: [facility] ?Address: [address] [place] [phone] ?Director: Enrique Hernandez MD Ryan Ovalles MD LAB BLOOD ORDERABLES REFERENCE [facility] REFERENCE [facility] [address] [place] [address] documented in this encounter Visit Diagnoses Diagnosis Epigastric pain- Primary Abdominal pain, epigastric Unintentional weight loss Loss of weight Nausea and vomiting, unspecified vomiting type Syncope, unspecified syncope type documented in this encounter Care Teams Paving Contractor Relationship Specialty Start Date End Date No, Physician PCP - General 07/19/22 documented as of this encounter
--- OUTSIDE RECORDS SUMMARY | 2023-08-21 07:50 | XMS_ITS | Summary of Care ---
Author Name Unknown Organization Carlee Laura a Address [address] [facility] [address] [place] [address] Phone Care Team Providers Care Practice Managers Name Role Phone No, Physician Primary Care Provider Unavailabl e Reason for Visit * Reason Comments Med Change Request Encounter Details Date Type Department Care Team Description 05/04/2023 Refill [facility] Internal Medicine [place] [address] [facility] [address] [address] [place] [address] Ryan Ovalles MD [address] [facility] [address] [place] [address] Med Change Request Allergies No known active allergiesdocumented as of this encounter (statuses as of 05/05/2023) Medications Medication Sig Dispensed Refills Start Date End Date Status sucralfate (CARAFATE) 1 g tabletIndications :Chronic gastric ulcer without hemorrhage and without perforation Take 1 tablet by mouth 2 times daily. 60 tablet 0 07/19/2022 Active omeprazole (PRILOSEC) 20 mg capsuleIndication s:Chronic gastric ulcer without hemorrhage and without perforation Take 1 capsule by mouth every morning (before breakfast). 30 capsule 0 07/19/2022 Active ondansetron (ZOFRAN) 8 MG tabletIndications :Nausea and vomiting, unspecified vomiting type Take 1 tablet by mouth every 8 hours as needed for Nausea or Vomiting. 30 tablet 0 08/01/2022 Active omeprazole (PRILOSEC) 20 mg capsuleIndication s:Epigastric pain,Acute superficial gastritis without hemorrhage Take 1 tablet every 12 hours daily 30 minutes before meals. 30 capsule 0 08/01/2022 Active benzonatate (TESSALON) 100 mg capsuleIndication s:Acute cough Take 1 capsule by mouth 3 times daily as needed for Cough. 90 capsule 0 08/18/2022 Active sucralfate (CARAFATE) 1 g tabletIndications :Encounter for medication refill Take 1 tablet by mouth 2 times daily. 60 tablet 0 08/18/2022 Active amitriptyline (ELAVIL) 10 mg tablet Take 1 tablet by mouth nightly. 90 tablet 0 05/05/2023 Active amitriptyline (ELAVIL) 10 mg tablet Take 1 tablet by mouth nightly. 30 tablet 3 04/10/2023 05/05/2023 Discontinued documented as of this encounter (statuses as of 05/05/2023) Active Problems Problem Noted Date Diagnosed Date Nausea and vomiting, unspecified vomiting type 1 10/09/2021 Overview: Added automatically from request for surgery [id number] Epigastric pain 08/08/2022 Overview: Added automatically from request for surgery [id number] Unintentional weight loss 08/08/2022 Overview: Added automatically from request for surgery [id number] documented as of this encounter (statuses as of 05/05/2023) Immunizations Name Administration Dates Next Due DTAP [...] Date Smoking Tobacco: Never Smokeless Tobacco: Never Sex and Gender Information Value Date Recorded Sex Assigned at Not on file Gender Identity Not on file Sexual Orientation Not on file documented as of this encounter Miscellaneous Notes * Telephone Encounter - Buster Guerrero Jr., Office Services Manager - 05/05/2023 11:35 AM PDT Original prescription was converted to a 90 day supply per pharmacy request. documented in this encounter Plan of Treatment [...] 02/16/2019, 01/20/2015 documented as of this encounter Insurance Payer Benefit Plan / Group Subscriber ID Effective Dates Phone Address [facility] [id number] 20[facility]-Pres ent [address] [place] [address] [facility] documented as of this encounter Care Teams Practice Managers Relationship Specialty Start Date End Date No, Physician PCP - General 07/19/22 documented as of this encounter
--- OUTSIDE RECORDS SUMMARY | 2023-08-21 07:50 | XMS_ITS | Summary of Care ---
Author Name Unknown Organization Carlee Laura a Address [address] [facility] [address] [place] [address] Phone Care Team Providers Care Optical Instrument Repairer Name Role Phone No, Physician Primary Care Provider Unavailabl e Encounter Details Date Type Department Care Team Description 08/15/2023 Orders Only [facility] Internal Medicine [place] [address] [facility] [address] [address] [place] [address] Ryan Ovalles MD [address] [facility] [address] [place] [address] Anemia, unspecified type (Primary Dx) Allergies No known active allergiesdocumented as of this encounter (statuses as of 08/15/2023) Medications Medication Sig Dispensed Refills Start Date [...] 08/01/2022 Active benzonatate (TESSALON) 100 mg capsuleIndications:Ac [place] cough Take 1 capsule by mouth 3 times daily as needed for Cough. 90 capsule 0 08/18/2022 Active sucralfate (CARAFATE) 1 g tabletIndications:Enc ounter for medication refill Take 1 tablet by mouth 2 times daily. 60 tablet 0 08/18/2022 Active amitriptyline (ELAVIL) 10 mg tablet Take 1 tablet by mouth nightly. 90 tablet 0 05/05/2023 Active documented as of this encounter (statuses as of 08/15/2023) Active Problems Problem Noted Date Diagnosed Date Nausea and vomiting, unspecified vomiting type 1 10/09/2021 Overview: Added automatically from request for surgery [id number] Epigastric pain 08/08/2022 Overview: Added automatically from request for surgery [id number] Unintentional weight loss 08/08/2022 Overview: Added automatically from request for surgery [id number] documented as of this encounter (statuses as of 08/15/2023) Immunizations Name Administration Dates Next Due DTAP [...] on file documented as of this encounter Plan of Treatment Scheduled Orders Name Type Priority Associated Diagnoses Orde r Schedule CBC with Differential Lab Routine Anemia, unspecified type 1 Occurrences starting 08/15/2023 until 08/15/2024 Health Maintenance Due Date Last Done Comments Hepatitis C Screening 2003 Well Child Check 12/14/2006 Human Immunodeficiency Virus (HIV) Screening 12/14/2018 COVID-19 Vaccine (4 - 2022-2 4 season) 2023 08/22/2021, 01/11/2021, 12/21/2020 Vaccine: Influenza (#1) 2023 06/11/2022 Vaccine: Dtap/Tdap/Td (7 - T d or Tdap) 01/20/2025 01/20/2015, 04/21/2009, 04/01/2006, Additional history exists Vaccine: HPV Completed 02/16/2019, 01/20/2015 documented as of this encounter Visit Diagnoses Diagnosis Anemia, unspecified type- Primary documented in this encounter Insurance Payer Benefit Plan / Group Subscriber ID Effective Dates Phone Address Type [facility] [place] [facility] [place] [id number] 2022-Pres ent [phone] 2 [address] [place] [address] HMO documented as of this encounter Care Teams Optical Instrument Repairer Relationship Specialty Start Date End Date No, Physician PCP - General 07/19/22 documented as of this encounter
--- OUTSIDE RECORDS SUMMARY | 2023-08-25 13:45 | XMS_ITS | Clinical Summary ---
Author Name Unknown Organization [facility] Address [place], [place] [address] Care Team Providers Care Alkylation Operator Name Role Phone Kalen Weston Primary Care Provider Unavail able Allergies No known active allergies Medications Medication Sig Dispensed Refills Start Date End Date Status sucralfate (CARAFATE) 100 mg/mL suspension 0 09/18/2022 Active ondansetron (ZOFRAN ODT) 4 mg disintegrating tablet 0 09/29/2022 Act hunter Active Problems Problem Noted Date Diagnosed Date Unintentional weight loss 08/08/2022 Overview: Added automatically from request for surgery [id number] Added automatically from request for surgery [id number] Nausea and vomiting 08/08/2022 Overview: Added automatically from request for surgery [id number] Added automatically from request for surgery [id number] Epigastric pain 08/08/2022 Overview: Added automatically from request for surgery [id number] Added automatically from request for surgery [id number] Immunizations Name Administration Dates Next Due COVID-19 vaccine ([employer] 30mcg/0.3mL) 12YO+ BIVALENT PF, MDV 06/11/2022 DTaP 04/21/2009, 6,07/31/2004,05/15,02/27/2004 HIB PRP-OMP (PedvaxHIB) 05/15/2004,02/27/2004 HIB PRP-T (ActHIB,Hiberix) 04/01/2006,05/15/2004 ,02/27/2004 HPV 9 (Gardasil 9) 02/16/2019 Hepatitis A (Peds) 04/21/2009,04/01/2006 Hepatitis A, Unspecified 04/21/2009 Hepatitis B (Adult) 02/27/2004,2003 Hepatitis B (Peds) 04/01/2006,02/27/2004, 004 Human Papilloma Virus Vaccine 01/20/2015 Inactivated Polio Vaccine 04/21/2009,,05/15/2004,02/26 Influenza, Injectable, Mdck, Quadrivalent, W/preservative 06/11/2022 MMR 04/01/2006,04/29/2005 Meningococcal Vaccine (Menactra) 02/25/2020 Meningococcal Vaccine (Menveo) 01/20/2015 Pneumococcal conj 13-Valent (Prevnar 13) 04/01/2006,07/31/2004,05/15/2004,02/26 Pneumococcal conj 7-Valent (Prevnar 7) 4,05/15/2004,02/27/2004 Tdap 01/20/2015 Varicella Vaccine 04/21/2009,04/29/2005 Family History Medical History Relation Name Comments Good Health Father Good Health Mother Relation Name Status Comments Father Mother Social History Tobacco Use Types Packs/Day Years Used Date Smoking Tobacco: Never Smokeless Tobacco: Never Tobacco Cessation:Counseling Given: Yes Alcohol Use Standard Drinks/Week Comments Never 0 (1 standard drink = 0.6 oz pur e alcohol) Social Connections Answer Date Recorded Frequency of Communication with Friends and Fami ly Not on file 10/14/2022 Sex and Gender Information Value Date Recorded Sex Assigned at Not on file Gender Identity Not on file Sexual Orientation Not on file Obstetrics History Last Filed Vital Signs Vital Sign Reading Time Taken Comments Blood Pressure 117/74 10/17/2022 12:30 PM STORE STOCK ASSOCIATE Pulse 73 10/17/2022 12:30 PM STORE STOCK ASSOCIATE Temperature - - Respiratory Rate 10/17/2022 12:3 0 PM STORE STOCK ASSOCIATE Oxygen Saturation 98% 10/17/2022 12: 30 PM STORE STOCK ASSOCIATE Inhaled Oxygen Concentration - - Weight 67.9 kg (149 lb 11.2 oz) 023 11:37 AM STORE STOCK ASSOCIATE Height 162.4 cm (5' 3.94) 10/14/2022 1 1:37 AM STORE STOCK ASSOCIATE Body Mass Index 25.75 10/14/2022 11:37 AM STORE STOCK ASSOCIATE Body Mass Index Percentile 83.94% 10/14 11:37 AM STORE STOCK ASSOCIATE Growth Chart: CDC (Girls, 2- 20 Years) Plan of Treatment Health Maintenance Due Date Last Done Comments Well Child Check for age 3-20 11/13/2006 Depression screening for age 12+ 2015 HIV for age 15-65 12/14/2018 Hepatitis C screening for ag e 18-79 12/14/2021 COVID-19 vaccine series ( season) 2023 06/11/2022 Influenza for age 9-49 04/18/2023 06/11/2022 BMI (ht and wt on same day) for age 18+ 10/14/2023 10/14/2022 Tetanus booster 01/20/2025 01/20/2015 Pneumococcal series for age 6-64 Completed 04/01/2006, 07/31/2004, 07/31/2004, Additional history exists Tdap Completed 01/20/2015 HPV series for age 9-26 Completed 02/16/2019, 01/20 Meningococcal series for age 11-21 Completed 2019, 01/20/2015 Care Teams Alkylation Operator Relationship Specialty Start Date End Date Kalen Weston PCP - General 10/11/22
--- NOTE | 2023-08-25 14:00 | CRLHL7_ITS ---
For Patients: As a result of the Century Cures Act, medical imaging exams and procedure reports are released immediately into your electronic medical record. You may view this report before your referring provider. If you have questions, please contact your health care provider. Indication: Chronic sinusitis Technique: Noncontrast CT of the paranasal sinuses. Coronal and sagittal reformats. Bone and soft tissue algorithms. Comparison: CT face 05/20/2023 Findings: Frontal sinuses: The frontal sinuses and frontal recesses are clear. Ethmoid air cells: The ethmoid air cells are clear aside from minimal retained secretions within a the right posterior ethmoid air cell. Symmetric depths of the olfactory fossa. The anterior ethmoidal arteries appear covered by bone. Sphenoid sinuses: The sphenoid sinuses and sphenoethmoidal recesses are clear. No optic canal or carotid canal dehiscence. Maxillary sinuses: The maxillary sinuses are clear aside from minimal mucosal thickening along the medial wall on the right. The osteomeatal units are clear. Nasal cavity: The nasal septum is relatively midline. No kapil bullosa. No paradoxical turbinates. Other Structures: No aggressive osseous lesions. No concerning periapical lucencies. Clear mastoid air cells. Unremarkable orbits. Imaged intracranial structures are unremarkable for technique. No suspicious findings in the regional soft tissues. IMPRESSION: 1. Significant interval improvement/resolution of previous sinus mucosal inflammatory disease. 2. The sinonasal cavities are now grossly clear, aside from minimal mucosal thickening along the medial right maxillary sinus and trace secretions within a right posterior ethmoid air cell. Please note that all CT scans at this facility use dose modulation, iterative reconstruction, and/or weight-based dosing when appropriate to reduce radiation dose to as low as reasonably achievable. Dictated by Radha Jimenes MD @ 08/25/2023 2:34:04 PM (Electronically Signed)
== END 2023-08-25 13:40 | disposition home or self-care (01) ==
LOC: CT 13:41
PROVIDERS: Visit Provider Otolaryngology
DX: J32.9 Chronic sinusitis, unspecified (principal)
CPT/HCPCS: 70486

== ENCOUNTER 2023-09-26 07:28 | Day surgery (SDC) | payer BC, SELFPAY ==
[2023-09-26] VITALS (11 sets, daily range): BP systolic 103–134; BP diastolic 67–87; PULSE 66–94; RESP 16–20; TEMP 36.5–37.1; O2SAT 95–100; BMI 27.6
[2023-09-26] MEDS: BUPIVACAINE 0.5%/EPINEPHRINE 0.9 MG (30.9 ML) INJECTION (07:00)
--- OUTSIDE RECORDS SUMMARY | 2023-09-26 07:31 | XMS_ITS | Clinical Summary ---
Author Name Unknown Organization [facility] Address [place], [place] [address] Care Team Providers Care Prep Manager Name Role Phone Kalen Weston Primary Care Provider Unavail able Allergies No known active allergies Medications Medication Sig Dispensed Refills Start Date End Date Status sucralfate (CARAFATE) 100 mg/mL suspension 0 09/18/2022 Active ondansetron (ZOFRAN ODT) 4 mg disintegrating tablet 0 09/29/2022 Act hunter Active Problems Problem Noted Date Diagnosed Date Unintentional weight loss 08/08/2022 Overview: Added automatically from request for surgery [id number] Added automatically from request for surgery [id number] Nausea and vomiting 08/08/2022 Overview: Added automatically from request for surgery [id number] Added automatically from request for surgery [id number] Epigastric pain 08/08/2022 Overview: Added automatically from request for surgery [id number] Added automatically from request for surgery [id number] Immunizations Name Administration Dates Next Due COVID-19 vaccine ([employer] 30mcg/0.3mL) 12YO+ BIVALENT PF, MDV 06/11/2022 DTaP [...] Comments Blood Pressure 117/74 10/17/2022 12:30 PM CLINICAL ASSOCIATE Pulse 73 10/17/2022 12:30 PM CLINICAL ASSOCIATE Temperature - - Respiratory Rate 10/17/2022 12:3 0 PM CLINICAL ASSOCIATE Oxygen Saturation 98% 10/17/2022 12: 30 PM CLINICAL ASSOCIATE Inhaled Oxygen Concentration - - Weight 67.9 kg (149 lb 11.2 oz) 023 11:37 AM CLINICAL ASSOCIATE Height 162.4 cm (5' 3.94) 10/14/2022 1 1:37 AM CLINICAL ASSOCIATE Body Mass Index 25.75 10/14/2022 11:37 AM CLINICAL ASSOCIATE Body Mass Index Percentile 83.94% 10/14 11:37 AM CLINICAL ASSOCIATE Growth Chart: CDC (Girls, 2- 20 [...] age 11-21 Completed 2019, 01/20/2015 Care Teams Prep Manager Relationship Specialty Start Date End Date Kalen Weston PCP - General 10/11/22
[2023-09-26] MEDS: SODIUM CHLORIDE 0.9 % (FLUSH) 10 ML SYRINGE IVF (07:55)
[2023-09-26] MEDS: LACTATED RINGERS 1000 ML 1,000 ML 100 ML IV (07:55)
[2023-09-26] MEDS: OXYMETAZOLINE 0.05% NASAL SPRAY 2 SPRAY NOSTRIL-B (08:05)
[2023-09-26] MEDS: SCOPOLAMINE 1 MG/3 DAY PATCH 1 PATCH TRANSDERMA (08:15)
--- NOTE | 2023-09-26 09:12 | W.ANESCHARGE ---
Anesthesia Charges Start Date/Time Anesthesia Start Date: 09/26/23 Anesthesia Start Time: 09:02 Stop Date/Time Anesthesia Stop Date: 09/26/23 Anesthesia Stop Time: 10:00
[2023-09-26] MEDS: COCAINE HCL 4 % 4 ML SOLUTION NOSTRIL-B (09:15)
[2023-09-26] MEDS: MUPIROCIN 1 GM PACKET 1 APPLIC TOPICAL (09:15)
[2023-09-26] MEDS: AYR SALINE NASAL GEL 1 APPLIC NOSTRIL-B (09:34)
--- NOTE | 2023-09-26 09:37 | P.ENTPROC_ITS ---
Procedure Note Date of procedure: 09/26/23 Procedure: Preoperative diagnosis nasal obstruction, nasal headache, septal deviation, left middle turbinate kapil bullosa, it bilateral inferior turbinate hypertrophy Postoperative diagnosis same Procedure nasal septoplasty, submucous partial resection inferior turbinates, endoscopic partial resection left middle turbinate kapil bullosa Under general endotracheal anesthesia patient was prepped and draped in usual fashion the nose decongested with cocaine pledgets and injected. A stab incision was made in the anterior of the right inferior turbinate a tunnel created with a Yelena dissector. The kapil bone was outfractured and co nservative anterior submucous resection performed. The Coblation was used for hemostasis and to cauterize intramurally along the inferior 10%. This was repeated on the left side in identical fashion. The left middle turbinate kapil bullosa was easily visualized with direct vision. Incision was made on the inferolateral aspect with a 15 blade and a small amount of submucosal bone resected. The turbinate was then crushed with the Ephraim forceps. The right middle turbinate was also crushed but there was no kapil bullosa. An incision was made in the septal mucosa on the right side anterior to this superior area 3 septal deflection. The mucosa was elevated with a Frederick dissector on the right side and the Yelena dissector used to cut through the cartilage and elevate the mucosa on the opposite side. Two pieces of septal bone and cartilage were resected and a single piece trimmed returned to the intraseptal space effectively correcting the septal deflection that was compressing right middle turbinate. Merocel pack soaked in Bactroban was trimmed lengthwise and placed on either side of the septal incision. The patient procedure well was taken recovery in satisfactory condition. Blood loss was less than 5 mL. There were no complications. Surgeon: Brayden Leyva MD
--- NOTE | 2023-09-26 11:18 | SUR.PHASEII ---
1115 Patient denies pain or nausea- is tolerating juice and toast.
== END 2023-09-26 12:01 | disposition home or self-care (01) ==
PROVIDERS: Visit Provider Otolaryngology
PROC: (CPT 31231; principal; 2023-09-26 08:45)
DX: J34.2 Deviated nasal septum (principal); J34.3 Hypertrophy of nasal turbinates; R51.9 Headache, unspecified; J34.89 Other specified disorders of nose and nasal sinuses
CPT/HCPCS: 30520; 30140; 30999; 00160; 81025; A9270; J0330; J1100; J1200; J1630; J2250; J2405; J2704; J3010; J7120